=== PATIENT | male | born 1985 ===

== ENCOUNTER 2024-05-22 23:57 | Emergency (ER) | payer SELFPAY ==
[~2024-05-22] VITALS: Ht 167.6 cm; Wt 69.6 kg
[2024-05-23 00:02] VITALS: BP 130/84; TEMP 97.5; O2SAT 99
== END 2024-05-23 01:20 | disposition left against medical advice (07) ==
LOC: M ED 23:57
DX: Z53.21 Procedure and treatment not carried out due to patient leaving prior to being seen by health care provider (principal)